=== PATIENT | female | born 1960 | race Caucasian/White ===

== ENCOUNTER 2017-04-11 08:02 | Emergency (ER) | payer MEDICAID ==
[~2017-04-11] VITALS: Ht 157.5 cm; Wt 74.5 kg
[2017-04-11 08:04] VITALS: Ht 157.5 cm; Wt 74.5 kg
[2017-04-11 08:49] VITALS: BP 164/97
== END 2017-04-11 08:49 | disposition home or self-care (01) ==
LOC: ED 08:02
DX: N39.0 Urinary tract infection, site not specified (principal); R10.30 Lower abdominal pain, unspecified; I10 Essential (primary) hypertension; Z90.710 Acquired absence of both cervix and uterus; Z90.49 Acquired absence of other specified parts of digestive tract

== ENCOUNTER 2019-10-29 07:35 | Emergency (ER) | payer MEDICAID ==
[~2019-10-29] VITALS: Ht 160 cm; Wt 78.0 kg
[2019-10-29 07:44] VITALS: Ht 160 cm; Wt 78.0 kg
[2019-10-29 09:32] VITALS: BP 144/89
== END 2019-10-29 09:32 | disposition home or self-care (01) ==
LOC: ED 07:35
DX: L50.9 Urticaria, unspecified (principal); I10 Essential (primary) hypertension
CPT/HCPCS: J0171; J1200; J7512

== ENCOUNTER 2019-10-31 21:33 | Emergency (ER) | payer MEDICAID ==
[~2019-10-31] VITALS: Ht 160 cm; Wt 75.7 kg
[2019-10-31 21:41] VITALS: Ht 160 cm; Wt 75.7 kg
[2019-11-01 00:02] VITALS: BP 117/75
== END 2019-11-01 00:02 | disposition home or self-care (01) ==
LOC: ED 21:33
DX: T78.2XXA Anaphylactic shock, unspecified, initial encounter (principal); T78.40XA Allergy, unspecified, initial encounter; I10 Essential (primary) hypertension; X58.XXXA Exposure to other specified factors, initial encounter
CPT/HCPCS: J0171; J1100; Q0163